=== PATIENT | female | born 1980 | race African-American/Black ===

== ENCOUNTER 2017-04-03 17:07 | Inpatient (IN) | payer OTHER ==
[~2017-04-03] VITALS: Ht 170.2 cm; Wt 81.6 kg
--- NOTE | 2017-04-03 17:16 | NUR ---
PT BIBA FROM URGENT CARE WITH C/O CHEST PAIN. PER EMS, THIS PAIN IS REPRODUCABLE AND WORSENS WITH PALPATION OF STERNAL AREA. VSS, HOWEVER PT DOES SHOW EKG CHANGES. A+O. NO RESPIRATORY DIFFICULTY. NO INCREASE OF PAIN WITH ACTIVITY
--- NOTE | 2017-04-03 17:24 | NUR ---
PT RECEIVED ASPIRIN 325MG FROM [facility] [place] APPRENTICE. PT STUDENT AT BEDSIDE FOR EVAL.
[2017-04-03] MEDS ORDERED: EXCEDRIN MIGRA1 EACH PO (17:30)
[2017-04-03] MEDS ORDERED: ASPIRIN EC81 M1 PO (17:30)
--- NOTE | 2017-04-03 17:42 | ED CARDIAC/CP/PALPITATIONS ---
History of Present Illness General Chief Complaint: Chest Pain Stated Complaint: CP Source: patient Exam Limitations: no limitations Vital Signs & Intake/Output Vital Signs & Intake/Output Vital Signs Date Time Temp Pulse Resp B/P B/P Pulse O2 O2 Flow FiO2 Mean Ox Delivery Rate 04/04 0023 99.5 63 20 138/88 97 Room Air 04/03 2152 97.0 63 18 128/72 97 Room Air 04/03 1945 96.8 64 20 132/64 98 Room Air 04/03 1741 98 Room Air 04/03 1716 97.5 69 18 138/80 96 Room Air ED Intake and Output 04/04 0000 04/03 1200 Intake Total Output Total Balance Patient 185 lb Weight Weight Reported by Patient Measurement Method Allergies Uncoded Allergies: FRUITS (THROAT CLOSES - OK WITH GRAPES AND ORANGES ONLY 04/03/17) Triage Note: PT BIBA FROM URGENT CARE WITH C/O CHEST PAIN. PER EMS, THIS PAIN IS REPRODUCABLE AND WORSENS WITH PALPATION OF STERNAL AREA. VSS, HOWEVER PT DOES SHOW EKG CHANGES. A+O. NO RESPIRATORY DIFFICULTY. NO INCREASE OF PAIN WITH ACTIVITY Triage Nurses Notes Reviewed? yes Onset: Abrupt Duration: day(s): (1), intermittent Timing: recent history Quality/Severity: moderate, severe : No Patient currently breastfeeds: No HPI: 36-year-old female comes into emergency room with complaints (DUARTE SRIVASTAVA) Reconcile Medications Aspirin (Ecotrin*) 81 MG TABLET.DR 1 TAB PO DAILY PRN PAIN (Reported) Aspirin/Acetaminophen/Caffeine (Excedrin Migraine Geltab) 250 MG-250 MG-65 MG TABLET 2 TAB PO PRN MIGRAINES (Reported) (MERCEDES HSU,JESS) Past History Travel History Traveled to [place] past 21 day No Medical History Any Pertinent Medical History? see below for history Cardiovascular: MURMUR Surgical History Surgical History: none Psychosocial History What is your primary language [place] Tobacco Use: Current Daily Use Daily Tobacco Use Amount/Type: => 5 Cigarettes daily Family History Hx Contributory? No (DUARTE SRIVASTAVA) Review of Systems Review of Systems Constitutional: Reports: no symptoms. EENTM: Reports: no symptoms. Respiratory: Reports: no symptoms. Cardiovascular: Reports: see HPI. GI: Reports: no symptoms. Genitourinary: Reports: no symptoms. Musculoskeletal: Reports: no symptoms. Skin: Reports: no symptoms. Neurological/Psychological: Reports: no symptoms. Hematologic/Endocrine: Reports: no symptoms. Immunologic/Allergic: Reports: no symptoms. All Other Systems: Reviewed and Negative (DUARTE SRIVASTAVA) Physical Exam Physical Exam General Appearance: well developed/nourished, no apparent distress, alert Head: atraumatic, normal appearance Eyes: Bilateral: normal appearance. Ears, Nose, Throat: normal ENT inspection, hearing grossly normal Neck: normal inspection Respiratory: normal breath sounds, no respiratory distress Cardiovascular: regular rate/rhythm Gastrointestinal: soft Back: normal inspection Extremities: normal inspection, normal capillary refill Neurologic/Psych: awake, alert, oriented x 3 Skin: intact, normal color Core Measures ACS in differential dx? No Severe Sepsis Present: No Septic Shock Present: No (DUARTE SRIVASTAVA) Progress Differential Diagnosis: AMI, aortic dissection, cholecystitis, pancreatitis, pericarditis, pneumonia, pneumothorax, PSVT, pulmonary embolism, PUD/GERD, PVCs/ PACs, rib fracture, unstable angina Plan of Care: Orders Procedure Date/time Status Nothing by Mouth 04/04 B Active TROPONIN LEVEL 04/04 0600 Active CBC WITHOUT DIFFERENTIAL 04/04 0600 Active EKG 04/04 0600 Active TROPONIN LEVEL 04/04 0000 Active EKG 04/04 0000 Active Regular Diet 04/03 D Complete Vital Signs 04/03 2243 Complete Teach/Educate 04/033 Active Pain Treatment and Response 04/03 2243 Active Nutritional Intake, Monitor 04/03 2243 Active Isolation 04/03 2243 Active Intake & Output 04/03 224 Complete Patient Care Conference 04/03 2243 Active Activity/Ambulation 04/03 2243 Active Intake & Output 04/03 2151 Active Pathway - chart 04/03 2145 Active House Staff 04/03 2145 Active Patient Data 04/03 214 Active Code Status 04/03 214 Active Pathway - chart 04/03 2142 Active Add-on Test (ER Only) 04/03 2141 Active ECHOCARDIOGRAM 04/03 2136 Active Patient Data 04/[address] in observation 04/03 2008 Active ED Holding Orders 04/03 2008 Active Vital Signs 04/03 2008 Active Code Status 04/03 2008 Complete URINALYSIS 04/03 1848 Complete TSH REFLEX 04/03 1752 Complete MAGNESIUM 04/03 1752 Complete Add-on Test (ER Only) 04/03 1729 Active Telemetry/Aluminum Pool Installer 04/03 1720 Active TROPONIN LEVEL 04/03 171 Complete HUMAN BETA HCG SCREEN 04/03 171 Complete COMPREHENSIVE METABOLIC PANEL 04/03 171 Complete CBC WITHOUT DIFFERENTIAL 04/03 1718 Complete EKG 04/03 171 Active VTE Mechanical Prophylaxis 04/03 UNK Active CIWA 04/03 UNK Active Current Medications Sig/Catherine Start time Last Medication Dose Stop Time Status Admin Enoxaparin Sodium 40 MG DAILY 04/04 1000 AC (Lovenox) Acetaminophen 650 MG Q6P PRN 04/03 2145 AC (Tylenol) Laboratory Tests 04/03/17 1923: Urine Color YEL, Urine Clarity HAZY H, Urine pH 6.0, Ur Specific [place] >= 1.030, Urine Protein TRACE H, Urine Ketones NEG, Urine Nitrite NEG, Urine Bilirubin NEG, Urine Urobilinogen 0.2, Ur Leukocyte Esterase NEG, Ur Microscopic SEDIMENT EXAMINED, Urine RBC RARE, Urine WBC RARE, Ur Epithelial Cells FEW, Urine Crystals 1+ CA OX H, Urine Mucus FEW, Urine Hemoglobin NEG, Urine Glucose NEG 04/03/17 1752: Anion Gap 10, Estimated GFR > 60, BUN/Creatinine Ratio 15.6, Glucose 82, Calcium 9.8, Magnesium 1.8, Total Bilirubin 0.8, AST 25, ALT 32, Alkaline Phosphatase 42 , Troponin I < 0.01, Total Protein 7.9, Albumin 4.7, Globulin 3.2, Albumin/ Globulin Ratio 1.5, TSH &T3 &Free T4 Intrp 2.620, Total Beta HCG NEGATIVE, CBC w Diff NO MAN DIFF REQ, RBC 4.69, MCV 93.6, MCH 31.0, RDW 12.9, MPV 10.0, Gran % 54.4, Lymphocytes % 34.7, Monocytes % 7.5, Eosinophils % 2.8, Basophils % 0.6, Absolute Granulocytes 2.5, Absolute Lymphocytes 1.6, Absolute Monocytes 0.3, Absolute Eosinophils 0.1, Absolute Basophils 0, PUBS MCHC 33.1 Diagnostic Imaging: Viewed by Me: Radiology Read. Discussed w/RAD: Radiology Read. Initial ED EKG: normal sinus rhythm, rate (59), nonspecific ST T wave chg, ST depression (DUARTE SRIVASTAVA) Departure Departure Condition: Stable Clinical Impression Primary Impression: Acute electrocardiogram changes Secondary Impressions: Chest pain at rest Departure Forms: Customer Survey General Discharge Information (DUARTE SRIVASTAVA) Departure Time of Disposition: 2006 Disposition: STILL A PATIENT Observation Note Spoke With: SRI HSU PhD,RUBY Ponce Physician Advisor Notified: IHSAN DE JESUS DO Place Patient In: Non-ED OBS Care Area Rationale for Observation: My rational for observation is as follows [TELE MONITOR, SERIAL EKG/TROPONIN, CARDIOLOGY EVALUATION, ECHOCARDIOGRAM, F/U CXR]. PA/MIRROR FABRICATION SUPERVISOR Co-Sign Statement Statement: ED Attending supervision documentation- [X] I saw and evaluated the patient. I have also reviewed all the pertinent lab results and diagnostic results. I agree with the findings and the plan of care as documented in the PA's/MIRROR FABRICATION SUPERVISOR's documentation. [X] I have reviewed the ED Record and agree with the PA's/MIRROR FABRICATION SUPERVISOR's documentation. [] Additions or exceptions (if any) to the PAs/MIRROR FABRICATION SUPERVISOR's note and plan are summarized below: [] (MERCEDES HSU,JESS) Critical Care Note Critical Care Note Critical Care Time: non-applicable (DUARTE SRIVASTAVA)
[2017-04-03 18:38] LABS: ABSOLUTE BASOPHIL COUNT 0 /CUMM (0.0-0.2); ABSOLUTE EOSINOPHIL COUNT 0.1 /CUMM (0.0-0.7); ABSOLUTE GRANULOCYTE CT 2.5 /CUMM (1.4-6.5); ABSOLUTE LYMPH COUNT 1.6 /CUMM (1.2-3.4); ABSOLUTE MONOCYTE COUNT 0.3 /CUMM (0.10-0.60); BASOPHIL % 0.6 % (0.0-2.0); EOSINOPHIL % 2.8 % (0-5); GRANULOCYTE % 54.4 % (42.2-75.2); MEAN CORPUSCULAR HGB CONC 33.1 G/DL (33.0-37.0); MEAN CORPUSCULAR VOLUME 93.6 FL (81.0-99.0); PLATELET COUNT 250 /CUMM (130-400); RBC DISTRIBUTION WIDTH 12.9 % (11.5-14.5); RED BLOOD CELL CT 4.69 /CUMM (4.20-5.40); WHITE BLOOD CELL COUNT 4.6 /CUMM (4.8-10.8)
--- NOTE | 2017-04-03 19:33 | NUR ---
URINE TRIO COLLECTED AND SENT BY THIS [facility].
--- NOTE | 2017-04-03 20:30 | NUR ---
PT AMB TO AND FROM RAD. CASE MANAGEMENT TO BEDSIDE.
--- NOTE | 2017-04-03 20:56 | NUR ---
HOUSE STAFF TO BEDSIDE FOR PT EVAL.
--- NOTE | 2017-04-03 20:57 | RADIOLOGY REPORT ---
EXAMINATION: XR CHEST CLINICAL INFORMATION: Chest pain. Shortness of breath. COMPARISON: None TECHNIQUE: 2 views of the chest were obtained. FINDINGS: No significant abnormality is noted involving the heart, lungs, mediastinum, bony thorax or soft tissues. IMPRESSION: Normal chest.
--- NOTE | 2017-04-03 21:51 | History & Physical ---
[facility] 2145: General Information and HPI MD Statement: I have seen and personally examined KORI BISHOP and documented this H&P. The patient is a 36 year old F who presented with a patient stated chief complaint of [chest pain]. 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 Patient reported taht she has intermittent chest pain off and on and having exertional dyspnea especially going upstairs but her frequency of chest pain increased recently and she is using aspirin for chest pain. She reported last night she was watching TV when she noticed chest pain and she took aspirin went sleep but due to pain she woke up. The pain was pressure-like, nonradiating central, 5/10, no aggravating factor but relieved a little bit by aspirin. Said this pain didn't go away completely so in the afternoon she went to urgent clinic [facility] and her to ED. She also reported that she drinks one glass of red wine every day. She denied nausea, vomiting, abdominal pain, fever, recent sore throat,swelling of legs, change in color of the hands or feet and rash. EKG showed severe LVH with subsequent ST-T changes(ST depression and T wave inversion) There was no pain when we interviewed the patient. CBC,BEP, TROP, TSH :unremarkable except wbc 4.6 C-xray: unremarkable Examination: HEENT Atraumatic, PERRLA, EOMI Neck Supple, No JVD, No thryomegaly Cardiovascular Regular Rate, Normal S1, Normal S2, 3/6 systolic murmur best heard on the right midsternall area Lungs Clear to Auscultation, Normal Air Movement Abdomen Normal Bowel Sounds, Soft, No Tenderness, Neurological Normal Speech, Strength at 5/5 X4 Ext, Sensation Intact Extremities No Clubbing, No Cyanosis, No Edema,Normal Pulses. Allergies/Medications Allergies: Uncoded Allergies: FRUITS (THROAT CLOSES - OK WITH GRAPES AND ORANGES ONLY 04/03/17) Past History Travel History Traveled to [place] past 21 day No Medical History Cardiovascular: MURMUR Surgical History Surgical History: none Review of Systems Review of Systems Constitutional: Reports: no symptoms. EENTM: Reports: no symptoms. Cardiovascular: Reports: chest pain. Respiratory: Reports: no symptoms. GI: Reports: no symptoms. Genitourinary: Reports: no symptoms. Musculoskeletal: Reports: no symptoms. Skin: Reports: no symptoms. Neurological/Psychological: Reports: no symptoms. Hematologic/Endocrine: Reports: no symptoms. Immunologic/Allergic: Reports: no symptoms. Exam & Diagnostic Data Last 24 Hrs of Vital Signs/I&O Vital Signs Date Time Temp Pulse Resp B/P B/P Pulse O2 O2 Flow FiO2 Mean Ox Delivery Rate 04/04 0023 99.5 63 20 138/88 97 Room Air 04/03 2152 97.0 63 18 128/72 97 Room Air 04/03 1945 96.8 64 20 132/64 98 Room Air 04/03 1741 98 Room Air 04/03 1716 97.5 69 18 138/80 96 Room Air Intake & Output 04/04 0800 04/04 0000 04/03 1600 Intake Total Output Total Balance Patient 185 lb Weight Weight Reported by Patient Measurement Method Physical Exam General Appearance Alert, Oriented X3, Cooperative, No Acute Distress Skin No Rashes Skin Temp/Moisture Exam: Warm/Dry HEENT Atraumatic, PERRLA, EOMI Neck Supple Cardiovascular Regular Rate, Normal S1, Normal S2 Lungs Clear to Auscultation, Normal Air Movement Abdomen Normal Bowel Sounds, Soft, No Tenderness Neurological Normal Gait, Normal Speech, Strength at 5/5 X4 Ext, Normal Tone, Sensation Intact, Cranial Nerves 3-12 NL Vascular Normal Pulses Assessment/Plan Assessment: 36 YO F smoker(3-5 cigarettes/d) PMH of sinus infection and heart murmer( septal defect since ) 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 We will observe her on telemetry floor. We will assess her for: ACS PERICARDITIS VSD Alcohol withdrawl symptoms ACS/VSD Observe on telemetry Serial EKG and troponin Check vitals into every 6HOURS Consult cardiology Echocardiogram Lipid profile Percarditis: CBC, BEP CHEST Xray Aspirin Alcohol withdrawal: Ativan per CIWA protocol Code status: full code DVT prophylaxis: mechanical and heparin Core Measures/Miscellaneous Acute Coronary Syndrome ACS Diagnosis: No Cerebrovascular Accident CVA/TIA Diagnosis: No Congestive Heart Failure CHF Diagnosis: No VTE (View Protocol) VTE Risk Factors: Smoking No Mech VTE prophylaxis d/t: No contraindications No VTE Pharm Prophylaxis d/t: No contraindications VTE Diagnosis: No VTE Type: NONE VTE Confirmed by (Test): NONE Sepsis (View Protocol) Severe Sepsis Present: No Septic Shock Septic Shock Present: No Miscellaneous Documentation Primary Care Physician: KARO DUNN MD Patient sees these Specialists cardiology Level of Patient Care: Telemetry Consults Needed: Consulting Specialty: Cardiology JESI WUELLIOT 04/03/17 3183: General Information and HPI Allergies/Medications Home Med list Aspirin (Ecotrin*) 81 MG TABLET.DR 1 TAB PO DAILY PRN PAIN (Reported) Aspirin/Acetaminophen/Caffeine (Excedrin Migraine Geltab) 250 MG-250 MG-65 MG TABLET 2 TAB PO PRN MIGRAINES (Reported) Metoprolol Tartrate 25 MG TABLET 25 MG PO BID heart Assessment/Plan As Ranked By This Provider Problem List: 1. 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 Maria T reports that she has chronic mediastinal chest pain on and off shortness of breath on exertion since couple of years ago(resolved by Excedrin or aspirin) . However the frequency of the chest pains has increased recently. She had administered on nonradiating, twisting, 5 out of 10 chest pain last night and she took Excedrin and went to bed. In the morning she had another episode of chest pain and she took another other Excedrin and in the afternoon chest pain is still persisted and increased to 8 out of 10 with mild dizziness and she went to urgent gain which showed abnormal EKGs and cardiomegaly in the chest x-ray. Patient was treated with aspirin 325 and sent to [facility] . Patient denies any nausea, vomiting, abdominal pain, swelling in legs, rash, fevers, chills. Patient does report of having URI last week she will when she was on a cruise which was treated by medication for 3 days. Social smoker, drinks a glass of red wine every day Vital signs on admission were stable, however EKG showed severe LVH with subsequent ST-T changes(ST depression in 2,3, v4,v5,v6), RI 59 Patient pain was resolved upon interviewing. Skin No Rashes, No Breakdown, 1 x 1 cm 2 nodules in the back and right axilla area, nontender and mildly mobile possible collid formation versus lipoma HEENT Atraumatic, PERRLA, EOMI Neck Supple, No JVD, No thryomegaly Cardiovascular Regular Rate, Normal S1, Normal S2, 3/6 systolic murmur best heard on the right midsternall area Lungs Clear to Auscultation, Normal Air Movement Abdomen Normal Bowel Sounds, Soft, No Tenderness, Neurological Normal Speech, Strength at 5/5 X4 Ext, Sensation Intact Extremities No Clubbing, No Cyanosis, No Edema,Normal Pulses CXR here :no acute pathology no cardiomegally CBC,BEP, TROP, TSH :unremarkable except wbc 4.6 Assessment and plan #Atypical chest pain with history of heart disease and abnormal EKG : ddx untreated VSD versus pericarditis versus ACS (less likely) * Observe in Telemetry 24 hour monitoring * Serial EKGs and Troponins x 3 * Check Vital Signs Q6 * Dr Barfield will see the patient in AM * Echocardiographyin AM * Check CBC, BEP * Check Lipid Profile # history of drinking wine everyday -Ativan per IRMA #Full code, Tylenol for pain,NPO in AM for now,DVT prophylaxis levonox and ALPS
--- NOTE | 2017-04-03 22:16 | NUR ---
PT HAS BED ASSIGNMENT 189-01.
--- NOTE | 2017-04-03 22:29 | NUR ---
REPORT GIVEN TO LULU PRECIADO TO TELE
[2017-04-04 00:23] VITALS: BP 138/88
--- NOTE | 2017-04-04 07:16 | PN-Observation ---
Observation Note Observation Note _ I have personally examined KORI BISHOP. her disposition is uncertain at this time. Before a determination can be made, she requires continued observation for the following reasons chest pain. Assessment/Plan Assessment: This is a 36 yo pleasent female with a PMHX of chronic chest pain/palpitation since childhood, evaluated by dry house attendant when she was in high school, given a holter monitor, but never used it while at home and did not follow up with the dry house attendant, presents with 2 day history of intermittent chestpain with exertional dyspnea. Pt states that this new episode was more severe in intensity to a point she decided to present to the ED. Eventhough patient mentions a possible septal defect "heart in the hole", her mother is not sure that the patient ever had a congenital septal defect. She reported on night while she was watching TV, she had an acute onset of chestpain and decided to take aspirin, then went to sleep. However her cp woke her up. She describes her cp as pressure-like, retrosternale, nonradiating , 5/10, no aggravating factor but relieved a little bit by aspirin.She decided to present to an urgent care next day in the afternoon as the pain was not resolving, urgent care referred her to ED. Pt smokes occasionally,denies illicit drug use, drinks 1 glass of wine daily. family hx is unremarkable for CAD. On presentation Vital signs on admission were stable. EKG showed severe LVH with subsequent ST-T changes(ST depression in 2,3, v4,v5, v6), NE 59. Serial troponin unremarkable for any GA. Lipid Panel WNL. Impression Chest pain. Acute GA ruled out by negative trops. EKG finding of LVH possibly suggesting a cardiomyopathy Plan Continue observation awaiting echo to assess for cardiomyopathy. awaiting further cardiology reccomendations. Problem List: 1. Chest pain at rest 2. Acute electrocardiogram changes Consulting Request: Consulting Specialty: Cardiology Subjective Follow-up For: CHEST PAIN Subjective: Seen and examined at bedside. Currently does not endorse any cp/palpitation or dyspnea. No acute o/n event reported by nursing staff. Review of Systems Constitutional: Reports: see HPI. Objective Last 24 Hrs of Vital Signs/I&O Vital Signs Date Time Temp Pulse Resp B/P B/P Pulse O2 O2 Flow FiO2 Mean Ox Delivery Rate 04/04 0728 97.0 54 18 120/60 98 Room Air 04/04 0023 99.5 63 20 138/88 97 Room Air 04/03 2152 97.0 63 18 128/72 97 Room Air 04/03 1945 96.8 64 20 132/64 98 Room Air 04/03 1741 98 Room Air 04/03 1716 97.5 69 18 138/80 96 Room Air Intake & Output 04/04 1600 04/04 0800 04/04 0000 Intake Total 0 Output Total Balance 0 Intake, Oral 0 Patient 83.915 kg Weight Weight Reported by Patient Measurement Method Physical Exam General Appearance: Alert, Oriented X3, Cooperative Neck: Supple, No JVD, +2 Carotid Pulse wo Bruit Lymphatic: Cervical nl Cardiovascular: Regular Rate, Normal S1, Normal S2, No Murmurs Lungs: Clear to Auscultation, Normal Air Movement Abdomen: Normal Bowel Sounds, Soft, No Tenderness Extremities: No Clubbing, No Cyanosis, No Edema Vascular: Normal Pulses, Pulses Symmetrical
[2017-04-04 07:28] VITALS: BP 110/80; BP 120/60
[2017-04-04 08:37] LABS: ABSOLUTE BASOPHIL COUNT 0 /CUMM (0.0-0.2); ABSOLUTE EOSINOPHIL COUNT 0.2 /CUMM (0.0-0.7); ABSOLUTE GRANULOCYTE CT 2.3 /CUMM (1.4-6.5); ABSOLUTE LYMPH COUNT 1.8 /CUMM (1.2-3.4); ABSOLUTE MONOCYTE COUNT 0.3 /CUMM (0.10-0.60); BASOPHIL % 0.4 % (0.0-2.0); EOSINOPHIL % 3.8 % (0-5); GRANULOCYTE % 50.5 % (42.2-75.2); HEMATOCRIT 39.8 % (37-47); MEAN CORPUSCULAR HGB 31.3 PG (27.0-31.0); MEAN CORPUSCULAR HGB CONC 33.7 G/DL (33.0-37.0); MEAN CORPUSCULAR VOLUME 92.9 FL (81.0-99.0); MEAN PLATELET VOLUME 10.1 FL (7.4-10.4); PLATELET COUNT 233 /CUMM (130-400); RBC DISTRIBUTION WIDTH 12.8 % (11.5-14.5); RED BLOOD CELL CT 4.28 /CUMM (4.20-5.40); WHITE BLOOD CELL COUNT 4.5 /CUMM (4.8-10.8)
[2017-04-04 14:48] VITALS: BP 120/62
--- NOTE | 2017-04-04 18:38 | Cons- Cardiology ---
General Information and HPI Consulting Request Date of Consult: 04/04/17 Requested By: SRI HSU PhD,RUBY Ponce History of Present Illness: Mariama is a 36 year old female with history of a heart problem first discovered at the age of about [age] that was not followed up on. She was recommended to have a Holter monitor performed but the patient did not follow throught with this recommendation. She has had a heart murmur since . Over the course of time this patient has noted intermittent bouts of chest discomfort. Over the past couple days, she noted intermittent discomfort and decided it was time to have it evaluated. The discomfort is over her left chest and is non-radiating. She also has shortness of breath with mild exertion and activities such as going up stairs will bring out both chest discomfort and shortness of breath. There are times when she is active but is comfortable without symptoms. Last evening she had a moderate left chest discomfort while watching TV with minimal relief by aspirin. Finally, this patient will also note occasional lightheadedness and palpitations. Allergies/Medications Allergies: Uncoded Allergies: FRUITS (THROAT CLOSES - OK WITH GRAPES AND ORANGES ONLY 04/03/17) Home Med List: Aspirin (Ecotrin*) 81 MG TABLET.DR 1 TAB PO DAILY PRN PAIN (Reported) Aspirin/Acetaminophen/Caffeine (Excedrin Migraine Geltab) 250 MG-250 MG-65 MG TABLET 2 TAB PO PRN MIGRAINES (Reported) Review of Systems Review of Systems: A twelve point review of systems is unremarkable. Past History Travel History Traveled to [place] past 21 day No Medical History Blood Transfusion Hx: No Cardiovascular: MURMUR Surgical History Surgical History: 1 Psychosocial History Smoking Status: Light Tobacco Smoker ETOH Use: occasional use Exam & Diagnostic Data Vital Signs and I&O Vital Signs Date Time Temp Pulse Resp B/P B/P Pulse O2 O2 Flow FiO2 Mean Ox Delivery Rate 04/04 1448 98.9 58 18 120/62 98 Room Air 04/04 0728 97.0 54 18 120/60 98 Room Air 04/04 0023 99.5 63 20 138/88 97 Room Air 04/03 2152 97.0 63 18 128/72 97 Room Air 04/03 1945 96.8 64 20 132/64 98 Room Air Intake & Output 04/04 1600 04/04 0800 04/04 0000 04/03 1600 04/03 0804/03 0000 Intake Total 0 Output Total 400 Balance -400 0 Intake, Oral 0 Output, Urine 400 Patient 185 lb Weight Weight Reported by Patient Measurement Method Physical Exam: General: WD/WN female in NAD; alert and oriented x 3 HEENT: NC/AT, PERRL, EOMI, clear oropharynx with mmm Neck: no JVD, no carotid bruit Heart: RRR with 2/6 systolic murmur at the RUSB and the apex Lungs: clear bilaterally ABdomen: soft, obese, NT, +vew bowel sounds Extremities: no edema Diagnostic Data EKG Results sinus rhythm with ST depressions and T wave inversions in leads V3-V6 and leads 2, 3 and F with LVH Assessment/Plan Assessment/Plan * This patient has symptoms, physical findings and ECG findings consistent with a hypertrophic cardiomyopathy. We will await her echocardiogram results. This condition, if present, tends to increase a patient's tendency toward ventricular dysrhythmias and, as such, may be the reason for her intermittent palpitations and lightheadedness. The myocardial thickening can also cause subendocardial ischemia that can lead to the electrocardiographic changes that are seen on her recent ECG. * This patient should be started on a beta edwar. Begin Metoprolol 25mg BID to increase filling times. Avoid diuretics or afterload reducing agents such as NURIA inhibitors for now. Avoid dehydration. Follow three sets of cardiac enzymes. * We will monitor for any arrhythmias and will consider an ICD if unexplained syncope or sustained VT if a hypertrophic cardiomyopathy is confirmed to be present. * Persantine stress test for tomorrow. Consult Acknowledgment - Thank you for your consult request.
--- NOTE | 2017-04-04 19:27 | ECHOCARDIOGRAM REPORT ---
KORI BISHOP Age: 36 : 1980 Gender: F Exam Date: 04/04/2017 09:22 Exam Location: [address] Ht (in): 67 Wt (lb): 185 BSA: 2.01 BP: 110 / 80 Ordering Physician: LYNDA WU MD Referring Physician: LYNDA WU MD Technologist: Pedro Wall [facility] Room Number: 189-1 Indications: Murmur Rhythm: Sinus Technical Quality: Fair FINDINGS Left Ventricle Normal size left ventricle. Borderline to mild left ventricular hypertrophy. No obvious regional wall motion abnormalities. Normal left ventricular ejection fraction visually estimated at greater than 65%. Normal left ventricular diastolic filling pattern for age. Right Ventricle Right ventricle at upper limits of normal. Right Atrium Normal right atrial size. Left Atrium Mild left atrial dilatation. Mitral Valve Mitral valve mildly thickened. Mild mitral regurgitation. Aortic Valve Trileaflet aortic valve. Mild aortic sclerosis. No aortic stenosis. Trace aortic regurgitation. Tricuspid Valve Structurally normal tricuspid valve. Unable to estimate the right ventricular systolic pressure. Pulmonic Valve Pulmonic valve not well visualized, grossly normal. No pulmonic regurgitation. Pericardium Physiologic pericardial effusion. Great Vessels Normal size aortic root. Normal size aortic root. CONCLUSIONS Normal size left ventricle. Borderline to mild left ventricular hypertrophy. No obvious regional wall motion abnormalities. Normal left ventricular ejection fraction visually estimated at greater than 65%. Normal left ventricular diastolic filling pattern for age. Right ventricle at upper limits of normal. Normal right atrial size. Mild left atrial dilatation. Mild mitral regurgitation. Trace aortic regurgitation. Physiologic pericardial effusion. Chase Su M.D. (Electronically Signed) Final Date: 04 April 2017 19:27 MEASUREMENTS (Male / Female) Normal Values 2D ECHO LV Diastolic Diameter PLAX 4.5 cm 4.2 - 5.9 / 3.9 - 5.3 cm LV Systolic Diameter PLAX 2.8 cm 2.1 - 4.0 cm LV Fractional Shortening PLAX 37.8 % 25 - 46 % LV Ejection Fraction 2D Teich 68.0 % IVS Diastolic Thickness 0.8 cm LVPW Diastolic Thickness 1.0 cm LV Relative Wall Thickness 0.4 RV Internal Dim ED PLAX 3.3 cm 1.9 - 3.8 cm LVOT Diameter 1.9 cm Aortic Root Diameter 2.3 cm LA Systolic Diameter LX 3.6 cm 3.0 - 4.0 / 2.7 - 3.8 cm LA Volume 66.0 cm 18 - 58 / 22 - 52 cm Ascending Aorta Diameter 2.2 cm DOPPLER AV Peak Velocity 158.0 cm/s AV Peak Gradient 10.0 mmHg AV Mean Velocity 94.1 cm/s AV Mean Gradient 5.0 mmHg AV Velocity Time Integral 30.8 cm LVOT Peak Velocity 117.0 cm/s LVOT Peak Gradient 5.5 mmHg LVOT Mean Velocity 60.9 cm/s LVOT Mean Gradient 2.0 mmHg LVOT Velocity Time Integral 20.5 cm LVOT Stroke Volume 58.1 cm AV Area Cont Eq vti 1.9 cm AV Area Cont Eq pk 2.1 cm MV Peak Velocity 68.2 cm/s MV Peak Gradient 1.9 mmHg MV Mean Velocity 39.0 cm/s MV Mean Gradient 1.0 mmHg Mitral E Point Velocity 67.1 cm/s Mitral A Point Velocity 23.2 cm/s Mitral E to A Ratio 2.9 MV PHT Velocity 65.0 cm/s MV Deceleration [place] 135.0 cm/s MV Pressure Half Time 144.4 ms MV Area PHT 1.5 cm MV Deceleration Time 412.0 ms MR Peak Velocity 459.0 cm/s MR Peak Gradient 84.3 mmHg PV Peak Velocity 141.0 cm/s PV Peak Gradient 8.0 mmHg PV Mean Velocity 83.3 cm/s PV Mean Gradient 3.0 mmHg PV Velocity Time Integral 30.7 cm
--- NOTE | 2017-04-04 20:00 | NUR ---
NSG NOTE: PATIENT COMPLAINED OF INTERMITTED CP; DESCRIBED SHARP IN EPIGASTRIC LOCATION; RESOLVED ON OWN; DR. NO LANE NOTIFIED
[2017-04-04 23:03] VITALS: BP 138/70
[2017-04-05] VITALS (9 sets, daily range): BP systolic 105–122; BP diastolic 60–68
--- NOTE | 2017-04-05 07:58 | PN- Housestaff ---
Subjective Follow-up For: chest pain Subjective: Patient seen and examined at bedside. Currently laying comfortably does not complain of any new chest pain, palpitation, shortness of breath. 12 beat NSVT was noted in the past 24 hours, patient was started on metoprolol. Patient will be put nothing by mouth tonight for stress test tomorrow morning. Review of Systems Constitutional: Reports: no symptoms. Objective Last 24 Hrs of Vital Signs/I&O Vital Signs Date Time Temp Pulse Resp B/P B/P Pulse O2 O2 Flow FiO2 Mean Ox Delivery Rate 04/05 1444 99.1 54 18 112/60 99 Room Air 04/05 1251 64 118/78 04/05 1200 64 20 118/60 04/05 0635 98.4 55 20 105/65 97 04/05 0600 56 105/68 04/04 2303 99.3 62 18 138/70 97 Room Air 04/04 2118 77 138/70 Intake & Output 04/05 1600 04/05 0800 04/05 0000 Intake Total 420 240 Output Total 600 Balance 420 -600 240 Intake, Oral 420 240 Output, Urine 600 Physical Exam General Appearance: Alert, Oriented X3, Cooperative Neck: Supple, No JVD, +2 Carotid Pulse wo Bruit Cardiovascular: Regular Rate, Normal S1, Normal S2, No Murmurs Lungs: Clear to Auscultation, Normal Air Movement Abdomen: Normal Bowel Sounds, Soft, No Tenderness, No Hepatospenomegaly, No Masses Assessment/Plan Assessment: This is a 36 yo pleasent female with a PMHX of chronic chest pain/palpitation since childhood, evaluated by shore worker when she was in high school, given a holter monitor, but never used it while at home and did not follow up with the shore worker, presents with 2 day history of intermittent chestpain with exertional dyspnea. Pt states that this new episode was more severe in intensity to a point she decided to present to the ED. Eventhough patient mentions a possible septal defect "heart in the hole", her mother is not sure that the patient ever had a congenital septal defect. She reported on Snday night while she was watching TV, she had an acute onset of chestpain and decided to take aspirin, then went to sleep. However her cp woke her up. She describes her cp as pressure-like, retrosternale, nonradiating , 5/10, no aggravating factor but relieved a little bit by aspirin.She decided to present to an urgent care next day in the afternoon as the pain was not resolving, urgent care referred her to ED. Pt smokes occasionally,denies illicit drug use, drinks 1 glass of wine daily. family hx is unremarkable for CAD. On presentation Vital signs on admission were stable. EKG showed severe LVH with subsequent ST-T changes(ST depression in 2,3, v4,v5, v6), [place] 59. Serial troponin unremarkable for any [place]. Lipid Panel WNL. Impression Chest pain. Acute IN ruled out by negative trops. EKG finding of LVH possibly suggesting a cardiomyopathy Plan Continue observation NPO tonight for stress test tomorrow morning. ECHO shows borderline to mild left ventricular hypertrophy. No obvious regional wall motion abnormalities. Normal left ventricular ejection fraction visually estimated at greater than 65%. Continue metoprolol awaiting further cardiology reccomendations. Problem List: 1. Acute electrocardiogram changes 2. Chest pain at rest Pain Ratin Pain Location: none Pain Goal: Remain pain free Pain Plan: per pathway Tomorrow's Labs & Rationales: BEP-NSVT Consulting Request: Consulting Specialty: Cardiology
--- NOTE | 2017-04-05 12:11 | PN- Cardiology ---
Subjective Subjective: * Patient complains of a frontal headache. No chest discomfort, shortness of breath, lightheadedness or palpitations this morning. * An episode of NSVT was noted yesterday. * The patient's echo is very suggestive of an apical variant of hypertrophic cardiomyopathy with the mid to apical LV being thickened greater than 15mm accompanied by restrictive hemodynamics and left atrial enlargment. Her overall EF is normal. Objective Vital Signs and I&Os Vital Signs Date Time Temp Pulse Resp B/P B/P Pulse O2 O2 Flow FiO2 Mean Ox Delivery Rate 04/05 0635 98.4 55 20 105/65 97 04/05 0600 56 105/68 04/04 2303 99.3 62 18 138/70 97 Room Air 04/04 2118 77 138/70 04/04 1448 98.9 58 18 120/62 98 Room Air Intake & Output 04/05 1600 04/05 0800 04/05 0000 04/04 1600 04/04 0800 04/04 0000 Intake Total 240 0 Output Total 600 400 Balance -600 240 -400 0 Intake, Oral 240 0 Output, Urine 600 400 Patient 185 lb Weight Weight Reported by Patient Measurement Method Physical Exam: General: WD/WN female in NAD; alert and oriented x 3 Neck: no JVD, no carotid bruit Heart: RRR with 2/6 systolic murmur at the RUSB and the apex Lungs: clear bilaterally Extremities: no edema Assessment/Plan Assessment/Plan * 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 It is possible that this myocardial thickening is a reaction to longstanding hypertension instead of a true hypertrophic cardiomyopathy which is a condition that is more concerning due to its tendency toward ventricular dysrhythmias. A true hypertrophic cardiomyopathy has microfibrillar dysarray and is prone to VT. In consideration of this patient first being found to have a cardiac issue in her early teens and due to her recorded episodes of VT, I am more suspicious that this is, indeed, a true hypertrophic cardiomyopathy. * We will proceed with a persantine stress test if this can be arranged for tomorrow. * We will plan on an outpatient electrophysiology consult with Dr. King. An ICD would be indicated for inducible VT or syncope, which the patient denies. * Continue Metoprolol 25mg BID. * Tylenol for headache. Continue telemetry? Yes
[2017-04-06 06:51] VITALS: BP 100/50
--- NOTE | 2017-04-06 08:05 | PN-Observation ---
Observation Note Observation Note _ I have personally examined KORI BISHOP. her disposition is uncertain at this time. Before a determination can be made, she requires continued observation for the following reasons chest pain. Assessment/Plan Assessment: This is a 36 yo pleasent female with a PMHX of chronic chest pain/palpitation since childhood, evaluated by extractive metallurgist when she was in high school, given a holter monitor, but never used it while at home and did not follow up with the extractive metallurgist, presents with 2 day history of intermittent chestpain with exertional dyspnea. Pt states that this new episode was more severe in intensity to a point she decided to present to the ED. Eventhough patient mentions a possible septal defect "heart in the hole", her mother is not sure that the patient ever had a congenital septal defect. She reported on Sn night while she was watching TV, she had an acute onset of chestpain and decided to take aspirin, then went to sleep. However her cp woke her up. She describes her cp as pressure-like, retrosternale, nonradiating , 5/10, no aggravating factor but relieved a little bit by aspirin.She decided to present to an urgent care next day in the afternoon as the pain was not resolving, urgent care referred her to ED. Pt smokes occasionally,denies illicit drug use, drinks 1 glass of wine daily. family hx is unremarkable for CAD. On presentation Vital signs on admission were stable. EKG showed severe LVH with subsequent ST-T changes(ST depression in 2,3, v4,v5, v6), [place] 59. Serial troponin unremarkable for any WI. Lipid Panel WNL. Impression Chest pain. Acute WI ruled out by negative trops. EKG finding of LVH possibly suggesting a cardiomyopathy ST depression on EKG Plan Continue observation awaiting stress test result ECHO shows borderline to mild left ventricular hypertrophy. No obvious regional wall motion abnormalities. Normal left ventricular ejection fraction visually estimated at greater than 65%. Continue metoprolol awaiting further cardiology reccomendations. Problem List: 1. Acute electrocardiogram changes 2. Chest pain at rest Consulting Request: Consulting Specialty: Cardiology Subjective Tele-Events Since Last Visit: ST depressions. Subjective: And examined at bedside. Overnight event of another episode of chest pain is noted. Serial troponins trended were unremarkable EKG still shows ST depression. No compression is of increased shortness of breath Review of Systems Constitutional: Reports: see HPI. Objective Last 24 Hrs of Vital Signs/I&O Vital Signs Date Time Temp Pulse Resp B/P B/P Pulse O2 O2 Flow FiO2 Mean Ox Delivery Rate 04/06 1455 98.7 68 18 122/68 99 Room Air 04/06 0651 98.1 58 20 100/50 97 Room Air 04/05 2246 98.5 63 20 112/66 98 Room Air 04/05 2200 98.5 63 20 112/66 04/05 2152 110/60 04/05 2126 99.2 57 20 110/60 97 Room Air Intake & Output 04/06 1600 04/06 0800 04/06 0000 Intake Total 0 200 660 Output Total 300 Balance -300 200 660 Intake, Oral 0 200 660 Number 1 Bowel Movements Output, Urine 300 Physical Exam General Appearance: Alert, Oriented X3, Cooperative Cardiovascular: Regular Rate, Normal S1, Normal S2 Lungs: Clear to Auscultation, Normal Air Movement Abdomen: Normal Bowel Sounds, Soft, No Tenderness Current Medications: Current Medications Sig/Catherine Start time Last Medication Dose Route Stop Time Status Admin Acetaminophen 650 MG Q6P PRN 04/03 2145 AC 04/06 PO 1450 Aspirin 81 MG DAILY 04/06 1718 AC PO Calcium Carbonate 500 MG 4 TIMES/DAY PRN 04/04 1245 AC 04/04 PO 1415 Dipyridamole 50 MG ONE ONE 04/06 1300 CAN Dextrose/Water 30 ML IV 04/06 1301 Enoxaparin Sodium 40 MG DAILY 04/04 1000 AC 04/06 SC 0845 Metoprolol Tartrate 25 MG BID 04/04 2200 AC 04/06 PO 0845 Simethicone 80 MG TID PRN 04/04 1600 AC 04/04 PO 1805 Sodium Chloride 2 SPRAY Q2 HRS NEEDED PRN 04/06 1745 AC MADELYN Last 24 Hrs of Labs/Mics: Laboratory Tests 04/05/17 2300: Troponin I < 0.01
[2017-04-06 14:55] VITALS: BP 122/68
[2017-04-06] MEDS ORDERED: METOPROLOL TART25 M1 PO (15:09)
--- NOTE | 2017-04-06 16:28 | NUCLEAR MEDICINE REPORT ---
EXERCISE STRESS AND RESTING SPECT MYOCARDIAL PERFUSION IMAGING STUDY WITH GATED SPECT IMAGES: CLINICAL INDICATION: Chest pain and shortness of breath PROCEDURE: Regional myocardial perfusion was assessed using a 2 day protocol. Stress images were obtained on 04/06/2017 following the intravenous administration of 31.6 mCi Tc 99m Myoview. Stress was performed using the standard Luis protocol, with the patient reaching a peak heart rate of 92% maximal predicted heart rate. Rest images were obtained 04/05/2017 following the intravenous administration of 29.3 mCi Technetium 99m Myoview. Single photon emission tomographic (SPECT) images were obtained. SPECT images were acquired in a 64 x 64 matrix of 64 projections over 180 degrees. These were reconstructed into standard short axis, horizontal and vertical long axis cardiac projections. FINDINGS: Stress images demonstrate normal left reticular chamber size. Mildly decreased perfusion noted in the apical and adjacent anterior wall of the left ventricular myocardium. Resting images demonstrate improved perfusion in this region. The stress images were obtained using a gated SPECT technique, which permits visualization of wall motion and calculation of the left ventricular ejection fraction. Gated images demonstrate normal overall wall motion. The calculated left ventricular ejection fraction is 49% on the stress study. IMPRESSION: 1. Perfusion SPECT images compatible with stress-induced ischemic changes involving the apical and anteroapical wall of the left ventricular myocardium. 2. Normal overall wall motion. Borderline decreased ejection fraction measured at 49%. Findings discussed with Dr. Barfield at 4:22 PM on 04/06/2017.
--- NOTE | 2017-04-06 16:59 | PN- Cardiology ---
Subjective Subjective: * No chest discomfort or shortness of breath. * Stress testing shows ischemia Objective Vital Signs and I&Os Vital Signs Date Time Temp Pulse Resp B/P B/P Pulse O2 O2 Flow FiO2 Mean Ox Delivery Rate 04/06 1455 98.7 68 18 122/68 99 Room Air 04/06 0651 98.1 58 20 100/50 97 Room Air 04/05 2246 98.5 63 20 112/66 98 Room Air 04/05 2200 98.5 63 20 112/66 04/05 2152 110/60 04/05 2126 99.2 57 20 110/60 97 Room Air 04/05 1800 122/68 Intake & Output 04/06 1600 04/06 0800 04/06 0000 04/05 1600 04/05 0800 04/05 0000 Intake Total 0 200 660 420 240 Output Total 300 600 Balance -300 200 660 420 -600 240 Intake, Oral 0 200 660 420 240 Number 1 Bowel Movements Output, Urine 300 600 Physical Exam: General: WD/WN female in NAD; alert and oriented x 3 Neck: no JVD, no carotid bruit Heart: RRR with 2/6 systolic murmur at the RUSB and the apex Lungs: clear bilaterally Extremities: no edema Assessment/Plan Assessment/Plan * This patient has an apical variant of hypertrophic cardiomyopathy without evidence of obstruction. It is possible that this myocardial thickening is a reaction to longstanding hypertension instead of a true hypertrophic cardiomyopathy which is a condition that is more concerning due to its tendency toward ventricular dysrhythmias. A true hypertrophic cardiomyopathy has microfibrillar dysarray and is prone to VT. In consideration of this patient first being found to have a cardiac issue in her early teens and due to her recorded episodes of VT, I am more suspicious that this is, indeed, a true hypertrophic cardiomyopathy. * The patient had a treadmill stress test that showed ST depressions that were worse than her baseline along with chest discomfort and nuclear imaging that is read as being indicative of ischemia. We will pursue a cardiac catheterization tomorrow. The risks and benefits of this procedure have been discussed and the patient agrees to proceed. Keep NPO except for medications after midnight. * We will plan on an outpatient electrophysiology consult with Dr. King. An ICD would be indicated for inducible VT or syncope. Although this patient does have occasional lightheadedness she denies any syncope. * Continue Metoprolol 25mg BID. Continue telemetry? Yes
[2017-04-06 23:09] VITALS: BP 122/64
[2017-04-07 07:00] VITALS: BP 94/48
--- NOTE | 2017-04-07 07:04 | PN- Housestaff ---
Assessment/Plan Assessment: This is a 36 yo pleasent female with a PMHX of chronic chest pain/palpitation since childhood, evaluated by park naturalist when she was in high school, given a holter monitor, but never used it while at home and did not follow up with the park naturalist, presents with 2 day history of intermittent chestpain with exertional dyspnea. Pt states that this new episode was more severe in intensity to a point she decided to present to the ED. Eventhough patient mentions a possible septal defect "heart in the hole", her mother is not sure that the patient ever had a congenital septal defect. She reported on Snday night while she was watching TV, she had an acute onset of chestpain and decided to take aspirin, then went to sleep. However her cp woke her up. She describes her cp as pressure-like, retrosternale, nonradiating , 5/10, no aggravating factor but relieved a little bit by aspirin.She decided to present to an urgent care next day in the afternoon as the pain was not resolving, urgent care referred her to ED. Pt smokes occasionally,denies illicit drug use, drinks 1 glass of wine daily. family hx is unremarkable for CAD. On presentation Vital signs on admission were stable. EKG showed severe LVH with subsequent ST-T changes(ST depression in 2,3, v4,v5, v6), [place] 59. Serial troponin unremarkable for any AL. Lipid Panel WNL. Impression Chest pain. Acute AL ruled out by negative trops. EKG finding of LVH possibly suggesting a cardiomyopathy ST depression on EKG Plan Continue observation awaiting stress test result ECHO shows borderline to mild left ventricular hypertrophy. No obvious regional wall motion abnormalities. Normal left ventricular ejection fraction visually estimated at greater than 65%. Continue metoprolol awaiting further cardiology reccomendations. Consulting Request: Consulting Specialty: Cardiology
[2017-04-07 08:10] VITALS: BP 108/60
--- NOTE | 2017-04-07 08:22 | Discharge Summary ---
See Addendum Visit Information Visit Dates Admission Date: 04/03/17 Discharge Date: 04/07/2017 Hospital Course Course Attending Physician: SRI HSU PhD,RUBY Ponce Primary Care Physician: KARO DUNN MD Consulting Request: Consulting Specialty: Cardiology Hospital Course: This is 36 YO F smoker(3-5 cigarettes/d) ,PMH of arrythmias since childhood seen by supervisor broadloom at age 13 with reccomendation for holter monitoring but never followed up or seen a supervisor broadloom since then, presents for evaluation of 2 day old chest pain. Patient reports a chronic hx of intermittent chest pain with exertional dyspnea and takes daily ASA. Her new chest pain episode occured while watching TV. The pain was pressure-like, nonradiating central, 5/10, no aggravating factor but relieved a little bit by aspirin. Pain persisted for hours, pt decided to go to urgent care and was instructed to go to [facility]. She denied nausea, vomiting, abdominal pain, fever, recent sore throat,swelling of legs, change in color of the hands or feet and rash. VS at presentation: stable EKG showed severe LVH with subsequent ST-T changes(ST depression and T wave inversion) There was no pain when we interviewed the patient. CBC,BEP, TROP, TSH :unremarkable except wbc 4.6 C-xray: unremarkable Examination: HEENT Atraumatic, PERRLA, EOMI Neck Supple, No JVD, No thryomegaly Cardiovascular Regular Rate, Normal S1, Normal S2, 3/6 systolic murmur best heard on the right midsternall area Lungs Clear to Auscultation, Normal Air Movement Abdomen Normal Bowel Sounds, Soft, No Tenderness, Neurological Normal Speech, Strength at 5/5 X4 Ext, Sensation Intact Extremities No Clubbing, No Cyanosis, No Edema,Normal Pulses. Pt was then admitted to Telemetry. Trended troponins were unremarkanle for AK. Telemetry monitoring did show 12 beat NSVT, she was started on metoprolol 25mg bid. Echocardiogram showed Normal size left ventricle with Borderline to mild left ventricular hypertrophy. No obvious regional wall motion abnormalities and a Normal left ventricular ejection fraction visually estimated at greater than 65%. Pt underwent a stress test ( SPECT MYOCARDIAL PERFUSION IMAGING STUDY WITH GATED SPECT IMAGES) which was remarkable for ST depressions that were worse than her baseline along with chest discomfort and nuclear imaging that was read as being indicative of ischemia. Consumer Credit Counselor attending reccomeded catheterization. Pt was transferred to [facility] on 04/07 for a cath. Allergies: Uncoded Allergies: FRUITS (THROAT CLOSES - OK WITH GRAPES AND ORANGES ONLY 04/03/17) Significant Procedures: SERVICE DATE: 04/05/17-1300 EXAM TYPE: NUC - MYOCARDIAL PERFUSION IMAGING EXERCISE STRESS AND RESTING SPECT MYOCARDIAL PERFUSION IMAGING STUDY WITH GATED SPECT IMAGES: CLINICAL INDICATION: Chest pain and shortness of breath PROCEDURE: Regional myocardial perfusion was assessed using a 2 day protocol. Stress images were obtained on 04/06/2017 following the intravenous administration of 31.6 mCi Tc 99m Myoview. Stress was performed using the standard Luis protocol, with the patient reaching a peak heart rate of 92% maximal predicted heart rate. Rest images were obtained 04/05/2017 following the intravenous administration of 29.3 mCi Technetium 99m Myoview. Single photon emission tomographic (SPECT) images were obtained. SPECT images were acquired in a 64 x 64 matrix of 64 projections over 180 degrees. These were reconstructed into standard short axis, horizontal and vertical long axis cardiac projections. FINDINGS: Stress images demonstrate normal left reticular chamber size. Mildly decreased perfusion noted in the apical and adjacent anterior wall of the left ventricular myocardium. Resting images demonstrate improved perfusion in this region. The stress images were obtained using a gated SPECT technique, which permits visualization of wall motion and calculation of the left ventricular ejection fraction. Gated images demonstrate normal overall wall motion. The calculated left ventricular ejection fraction is 49% on the stress study. IMPRESSION: 1. Perfusion SPECT images compatible with stress-induced ischemic changes involving the apical and anteroapical wall of the left ventricular myocardium. 2. Normal overall wall motion. Borderline decreased ejection fraction measured at 49%. Findings discussed with Dr. Barfield at 4:22 PM on 04/06/2017. DICTATED BY: NOBLE CHAWLA MD SERVICE DATE: 04/04/17 EXAM TYPE: CARD - ECHOCARDIOGRAM KORI BISHOP Age: 36 : 1980 Gender: F Exam Date: 04/04/2017 09:22 Exam Location: [address] [place] [address] Ht (in): 67 Wt (lb): 185 BSA: 2.01 BP: 110 / 80 Ordering Physician: LYNDA WU MD Referring Physician: LYNDA WU MD Technologist: Pedro Wall [facility] Room Number: 189-1 Indications: Murmur Rhythm: Sinus Technical Quality: Fair FINDINGS Left Ventricle Normal size left ventricle. Borderline to mild left ventricular hypertrophy. No obvious regional wall motion abnormalities. Normal left ventricular ejection fraction visually estimated at greater than 65%. Normal left ventricular diastolic filling pattern for age. Right Ventricle Right ventricle at upper limits of normal. Right Atrium Normal right atrial size. Left Atrium Mild left atrial dilatation. Mitral Valve Mitral valve mildly thickened. Mild mitral regurgitation. Aortic Valve Trileaflet aortic valve. Mild aortic sclerosis. No aortic stenosis. Trace aortic regurgitation. Tricuspid Valve Structurally normal tricuspid valve. Unable to estimate the right ventricular systolic pressure. Pulmonic Valve Pulmonic valve not well visualized, grossly normal. No pulmonic regurgitation. Pericardium Physiologic pericardial effusion. Great Vessels Normal size aortic root. Normal size aortic root. CONCLUSIONS Normal size left ventricle. Borderline to mild left ventricular hypertrophy. No obvious regional wall motion abnormalities. Normal left ventricular ejection fraction visually estimated at greater than 65%. Normal left ventricular diastolic filling pattern for age. Right ventricle at upper limits of normal. Normal right atrial size. Mild left atrial dilatation. Mild mitral regurgitation. Trace aortic regurgitation. Physiologic pericardial effusion. Adalid Su M.D. (Electronically Signed) Final Date: 04 April 2017 19:27 MEASUREMENTS (Male / Female) Normal Values 2D ECHO LV Diastolic Diameter PLAX 4.5 cm 4.2 - 5.9 / 3.9 - 5.3 cm LV Systolic Diameter PLAX 2.8 cm 2.1 - 4.0 cm LV Fractional Shortening PLAX 37.8 % 25 - 46 % LV Ejection Fraction 2D Teich 68.0 % IVS Diastolic Thickness 0.8 cm LVPW Diastolic Thickness 1.0 cm LV Relative Wall Thickness 0.4 RV Internal Dim ED PLAX 3.3 cm 1.9 - 3.8 cm LVOT Diameter 1.9 cm Aortic Root Diameter 2.3 cm LA Systolic Diameter LX 3.6 cm 3.0 - 4.0 / 2.7 - 3.8 cm LA Volume 66.0 cm 18 - 58 / 22 - 52 cm Ascending Aorta Diameter 2.2 cm DOPPLER AV Peak Velocity 158.0 cm/s AV Peak Gradient 10.0 mmHg AV Mean Velocity 94.1 cm/s AV Mean Gradient 5.0 mmHg AV Velocity Time Integral 30.8 cm LVOT Peak Velocity 117.0 cm/s LVOT Peak Gradient 5.5 mmHg LVOT Mean Velocity 60.9 cm/s LVOT Mean Gradient 2.0 mmHg LVOT Velocity Time Integral 20.5 cm LVOT Stroke Volume 58.1 cm AV Area Cont Eq vti 1.9 cm AV Area Cont Eq pk 2.1 cm MV Peak Velocity 68.2 cm/s MV Peak Gradient 1.9 mmHg MV Mean Velocity 39.0 cm/s MV Mean Gradient 1.0 mmHg Mitral E Point Velocity 67.1 cm/s Mitral A Point Velocity 23.2 cm/s Mitral E to A Ratio 2.9 MV PHT Velocity 65.0 cm/s MV Deceleration [place] 135.0 cm/s MV Pressure Half Time 144.4 ms MV Area PHT 1.5 cm MV Deceleration Time 412.0 ms MR Peak Velocity 459.0 cm/s MR Peak Gradient 84.3 mmHg PV Peak Velocity 141.0 cm/s PV Peak Gradient 8.0 mmHg PV Mean Velocity 83.3 cm/s PV Mean Gradient 3.0 mmHg PV Velocity Time Integral 30.7 cm DICTATED BY: DOMINIQUE HSU,ADALID Ponce Disposition Summary Disposition Principal Diagnosis: CHEST PAIN Additional Diagnosis: POSSIBBLE CARDIOMYOPATHY Discharge Disposition: other general hospital Discharge Instructions General Discharge Information Code Status: Full Code Patient's Diet: regular Patient's Activity: as tolerated Follow-Up Instructions/Appts: Pt is to undergo cath, transferred to [facility]. Medications at Discharge Discharge Medications: Continue taking these medications: Aspirin/Acetaminophen/Caffeine (Excedrin Migraine Geltab) 250 MG-250 MG-65 MG TABLET 2 Tablet ORAL as needed for MIGRAINES Comments: NOT GIVEN Aspirin (Ecotrin*) 81 MG TABLET. 1 Tablet ORAL DAILY as needed for PAIN Comments: GIVEN 04/07/17 @ 0810 Start taking the following new medications: Metoprolol Tartrate (Metoprolol Tartrate) 25 MG TABLET 25 Milligram ORAL TWICE DAILY Qty = 60 No Refills Comments: GIVEN 04/07/17 @ 0810 Copies To: SRI HSU PhD,RUBY Ponce
--- NOTE | 2017-04-07 08:34 | Patient Discharge Instructions ---
Discharge Instructions General Discharge Information You were seen/treated for: chest pain Special Instructions: You are being transferred to [facility] for a cath Please follow up with Dr Barfield regarding the finding of cath and management f/u with your PCP within 1 week. Acute Coronary Syndrome Inclusion Criteria At DC or during hospital stay patient has or had the following: ACS DIAGNOSIS No Discharge Core Measures Meds if any: Prescribed or Continued at Discharge Meds if any: NOT Prescribed or Continued at Discharge Congestive Heart Failure Inclusion Criteria At DC or during hospital stay patient has or had the following: CHF DIAGNOSIS No Discharge Core Measures Meds if any: Prescribed or Continued at Discharge Meds if any: NOT Prescribed or Continued at Discharge Cerebrovascular accident Inclusion Criteria At DC or during hospital stay patient has or had the following: CVA/TIA Diagnosis No Discharge Core Measures Meds if any: Prescribed or Continued at Discharge Meds if any: NOT Prescribed or Continued at Discharge Venous thromboembolism Inclusion Criteria VTE Diagnosis No VTE Type NONE VTE Confirmed by (Test) NONE Discharge Core Measures - Per Current guidelines, there needs to be overlap - treatment for the first 5 days of Warfarin therapy. - If discharged on Warfarin prior to 5 days of - overlap therapy, the patient will need to be - assessed for post discharge needs including - *Post discharge parental anticoagulation - *Warfarin and/or parental anticoagulation education - *Follow up date to check INR post discharge At least 5 days overlap therapy as Inpatient No Meds if any: Prescribed or Continued at Discharge Note: Overlap Therapy is Warfarin and Anticoagulant Meds if any: NOT Prescribed or Continued at Discharge
== END 2017-04-07 08:50 | disposition short-term general hospital (02) | DRG 316 ==
LOC: ERH 17:07 → ERHI 20:08 → 1NO 20:08 → ENRESERV 22:12 → ENTRNSPT 22:26 → CMPTRNSPT 22:28 → 1NO 22:45
PROVIDERS: Internal Medicine; Physician Assistant Medical; ADMIT Internal Medicine Interventional Cardiology
DX: I42.2 Other hypertrophic cardiomyopathy (principal); F17.210 Nicotine dependence, cigarettes, uncomplicated; I49.9 Cardiac arrhythmia, unspecified; R01.1 Cardiac murmur, unspecified; I51.7 Cardiomegaly; G89.29 Other chronic pain; R51 Headache; I25.9 Chronic ischemic heart disease, unspecified
CPT/HCPCS: 1NSP; 36415; 78452; 81001; 82436; 93005; 93010; 93016; 93017; 93306; A9502; J1245; J1650; J3490